=== PATIENT | male | born 1950 | race Two or more races ===

== ENCOUNTER 2021-06-19 05:35 | Day surgery (SDC) | payer OTHER ==
[~2021-06-19 05:35] MED LIST: GLIPIZIDE XL10 MG PO; LIPITOR40 MG PO; TRIJARDY XR 5-1 EACH PO; ZESTRIL20 MG PO; ZETIA10 MG PO
[2021-06-19] MEDS ORDERED: MIRALAX17 GM PO (08:57)
[2021-06-19] MEDS ORDERED: TYLENOL ARTHRI650 MG PO (08:57)
[2021-06-19] MEDS ORDERED: ULTRAM50 MG PO (08:57)
== END 2021-06-19 13:00 | disposition home or self-care (01) ==
LOC: CIR.AMB 05:35
PROVIDERS: ATTEND Surgery
DX: K43.6 Other and unspecified ventral hernia with obstruction, without gangrene (principal); E11.9 Type 2 diabetes mellitus without complications; E78.00 Pure hypercholesterolemia, unspecified

== ENCOUNTER 2024-09-03 18:37 | Emergency (ER) | payer OTHER ==
[~2024-09-03] VITALS: Ht 170.2 cm; Wt 81.6 kg
[~2024-09-03 18:37] MED LIST changes: +MIRALAX17 GM PO; +TYLENOL ARTHRI650 MG PO; +ULTRAM50 MG PO
[2024-09-03 20:33] LABS: BASO % 0.6 % (0.1-1.2); EOS # 0.26 (0.04-0.54); EOS % 2.6 % (0.7-7.0); HEMATOCRIT 38.7 % (40.1-51.0); HEMOGLOBIN 13.8 g/dL (13.7-17.5); LYMPH # 0.99 (1.18-3.74); LYMPH % 9.9 % (19.3-53.1); MEAN CORPUSCULAR HEMOGLOBIN 31.1 pg (25.6-32.2); MONO # 1.77 (0.24-0.82); NEUT # 6.92 (1.56-6.13); PLATELET COUNT 336 K/uL (163-369); RED BLOOD COUNT 4.44 M/uL (4.63-6.08); RED CELL DISTRIBUTION WIDTH 13.3 % (11.6-14.4)
[2024-09-03 20:34] LABS: MONO % 17.6 % (4.7-12.5)
[2024-09-03 21:01] LABS: URINE APPEARANCE Clear; URINE BILIRRUBIN Negative (NEGATIVE); URINE BLOOD Trace; URINE COLOR Yellow; URINE KETONE Negative (NEGATIVE); URINE LEUKOCYTE Negative; URINE NITRATE Negative; URINE PROTEIN Negative (NEGATIVE); URINE UROBILINOGEN 0.2 E.U./dl
[2024-09-03 21:05] LABS: URINE BACTERIA 4.8 uL (0.0-1933); URINE EPITHELIAL CELLS 7.2 uL (0.0-38.8); URINE WBC 23.8 uL (0.0-23.2)
[2024-09-03 21:06] LABS: URINE GLUCOSE >=1000 MG/DL (NEGATIVE); URINE RBC 1.6 uL (0.0-20.8)
[2024-09-03 21:29] LABS: BILIRUBIN TOTAL 1.71 mg/dL (0.3-1.2); CALCIUM 9.9 mg/dL (8.5-10.1); CREATININE SERUM 2.25 mg/dL (0.70-1.30); GFR 28.65; GLOBULINA 4.7 G/DL (2.4-3.5); POTASSIUM 5.71 mEq/L (3.5-5.1); TOTAL PROTEIN 7.7 gm/dL (6.4-8.2)
[2024-09-04] MEDS ORDERED: ACETAMINOPHEN 500 MG GEL..CAP PO ONE ×2 (00:30→01:00)
[2024-09-04 06:17] LABS: BASO % 0.7 % (0.1-1.2); EOS # 0.28 (0.04-0.54); EOS % 3.9 % (0.7-7.0); HEMATOCRIT 39.2 % (40.1-51.0); HEMOGLOBIN 13.5 g/dL (13.7-17.5); LYMPH # 1.16 (1.18-3.74); MEAN CORPUSCULAR HEMOGLOBIN 30.1 pg (25.6-32.2); MONO # 1.32 (0.24-0.82); NEUT % 60.8 % (34.0-71.1); PLATELET COUNT 274 K/uL (163-369); RED BLOOD COUNT 4.49 M/uL (4.63-6.08); RED CELL DISTRIBUTION WIDTH 12.9 % (11.6-14.4)
[2024-09-04 06:18] LABS: MONO % 18.2 % (4.7-12.5)
[2024-09-04 07:04] LABS: ALBUMIN 2.8 gm/dL (3.4-5.0); BILIRUBIN TOTAL 0.97 mg/dL (0.3-1.2); CALCIUM 9.5 mg/dL (8.5-10.1); CREATININE SERUM 1.29 mg/dL (0.70-1.30); GFR 54.44; GLOBULINA 4.3 G/DL (2.4-3.5); POTASSIUM 3.67 mEq/L (3.5-5.1); TOTAL PROTEIN 7.1 gm/dL (6.4-8.2)
[2024-09-04] MEDS ORDERED: CEPHALEXIN500 MG PO (08:32)
[2024-09-04] MEDS ORDERED: TAMS0.4C PO ×2 (08:32)
== END 2024-09-04 09:49 ==
LOC: ER 18:37
PROVIDERS: Emergency Medicine; General Practice
DX: N40.1 Benign prostatic hyperplasia with lower urinary tract symptoms (principal); R33.8 Other retention of urine; Z88.8 Allergy status to other drugs, medicaments and biological substances; I10 Essential (primary) hypertension; E11.9 Type 2 diabetes mellitus without complications; Z79.84 Long term (current) use of oral hypoglycemic drugs